=== PATIENT | female | born 1945 | race Two or more races ===

== ENCOUNTER 2017-09-01 14:32 | Emergency (ER) | payer OTHER ==
[~2017-09-01] VITALS: Ht 165.1 cm; Wt 72.6 kg
[2017-09-01] MEDS ORDERED: SODIUM CHLORIDE 0.9% 1,000 ML IV ONE ×2 (15:07)
[2017-09-01 16:00] LABS: Basophils # (auto) 0 uL; Basophils % (auto) 0.5 % (0.0-2.0); Eosinophils # (auto) 0.1 uL; Eosinophils % (auto) 1.8 % (0.0-7.0); Hematocrit 31.3 % (36.0-46.0); Hemoglobin 10.6 g/dL (12.2-16.2); Lymphocytes % (auto) 18.4 % (10.0-50.0); Mean Corpuscular Hemoglobin 30.6 pg (28.0-32.0); Mean Corpuscular Hgb Conc. 33.8 g/dL (32.0-36.0); Mean Corpuscular Volume 90.4 fL (80.0-100.0); Monocytes # (auto) 0.3 uL; Monocytes % (auto) 5.2 % (0.0-12.0); Neutrophils # (auto) 4.2 uL; Neutrophils % (auto) 74.1 % (37.0-80.0); Nucleated Red Blood Cells % 0.1 %; Platelet Count (auto) 135 10^3/uL (140-450); Red Blood Cells 3.46 10^6/uL (4.0-5.20); Red Cell Distribution Width 13.2 % (11.8-14.3); White Blood Cell 5.7 10^3/uL (4.4-10.8)
[2017-09-01 16:16] LABS: Alanine Aminotransferase 23 U/L (13-56); Albumin 3.4 g/dL (3.4-5.0); Alkaline Phosphatase 70 U/L (45-117); Anion Gap 8 (5-15); Aspartate Aminotransferase 18 U/L (15-37); BUN/Creatinine Ratio 26.5; Bilirubin, Total 0.4 mg/dL (0.2-1.0); Blood Urea Nitrogen 49 mg/dL (7-18); Calcium 7.9 mg/dL (8.5-10.1); Carbon Dioxide 27 mmol/L (21-32); Chloride 108 mmol/L (98-107); GFR African American 34 mL/min; GFR Non-African American 28 mL/min; Glucose 158 mg/dL (74-106); Potassium 4.3 mmol/L (3.5-5.1); Sodium 143 mmol/L (136-145); Total Protein 6.6 g/dL (6.4-8.2)
[2017-09-01 16:32] LABS: Urine Bacteria FEW /hpf (None Seen); Urine Blood Negative /uL (Negative); Urine Hyaline Cast FEW /lpf (0 - 2); Urine Specific Gravity 1.009 (1.001-1.035); Urine WBC 1 /hpf (0 - 5)
[2017-09-01 17:05] VITALS: BP 124/58
== END 2017-09-01 18:06 | disposition home or self-care (01) ==
LOC: ER 14:32 → EDBD 14:32 → ER 18:06
DX: E86.0 Dehydration (principal); J06.9 Acute upper respiratory infection, unspecified; E11.9 Type 2 diabetes mellitus without complications; I10 Essential (primary) hypertension
CPT/HCPCS: 36415; 71045; 80053; 81001; 84484; 85025; 93005; 96360; 99285; J7030

== ENCOUNTER 2020-06-11 23:47 | Inpatient (IN) | payer OTHER ==
[~2020-06-11] VITALS: Ht 162.6 cm; Wt 79.5 kg
[2020-06-12 01:05] LABS: Basophils # (auto) 0 10 ^3/uL (0-0.2); Basophils % (auto) 0.4 % (0.0-2.0); Eosinophils # (auto) 0.2 10 ^3/uL (0-0.8); Hematocrit 34.2 % (36.0-46.0); Hemoglobin 11.4 g/dL (12.2-16.2); Lymphocytes # (auto) 0.9 10 ^3/uL (0.4-5.4); Lymphocytes % (auto) 11.7 % (10.0-50.0); Mean Corpuscular Hemoglobin 30.1 pg (28.0-32.0); Mean Corpuscular Hgb Conc. 33.4 g/dL (32.0-36.0); Mean Corpuscular Volume 90.4 fL (80.0-100.0); Monocytes # (auto) 0.4 10 ^3/uL (0-1.3); Monocytes % (auto) 5.4 % (0.0-12.0); Neutrophils # (auto) 6.2 10 ^3/uL (1.6-8.6); Neutrophils % (auto) 80.5 % (37.0-80.0); Platelet Count (auto) 205 10^3/uL (140-450); Red Blood Cells 3.78 10^6/uL (4.0-5.20); Red Cell Distribution Width 12.9 % (11.8-14.3); White Blood Cell 7.7 10^3/uL (4.4-10.8)
[2020-06-12 01:21] LABS: Calcium 8.9 mg/dL (8.5-10.1)
[2020-06-12 01:24] LABS: Bilirubin, Total 0.3 mg/dL (0.2-1.0); Total Protein 7.4 g/dL (6.4-8.2)
[2020-06-12] MEDS ORDERED: ONDANSETRON HCL 4 MG/2 ML VIAL IV ONE (02:15)
[2020-06-12] MEDS ORDERED: MORPHINE SULFATE 4 MG/ML SYR/VIAL IV ONE (02:15)
[2020-06-12 02:27] LABS: Urine Bacteria FEW /hpf (None Seen); Urine Blood Negative /uL (Negative); Urine Hyaline Cast MOD /lpf (0 - 2); Urine Mucus FEW (None Seen); Urine Specific Gravity 1.018 (1.001-1.035); Urine WBC 6 /hpf (0 - 5)
[2020-06-12] MEDS ORDERED: LIDOCAINE 2%HCL (LOCAL ANESTH.) INJ 20ML MDV ID ONE (02:45)
[2020-06-12] MEDS ORDERED: OMNIPAQUE ORAL SOLN 500ml 12mg/ml PO ONE (03:52)
[2020-06-12] MEDS ORDERED: PIPERACILLIN-TAZOB 3.375GM 100 ML IV ONE (04:45)
[2020-06-12] MEDS ORDERED: VANCOMYCIN 1GM/250ML 250 ML IV ONE (04:45)
[2020-06-12] MEDS ORDERED: ACETAMINOPHEN 325 MG TAB PO PRN (07:15)
[2020-06-12] MEDS ORDERED: HYDROcodone-ACET 5/325MG TAB PO PRN (07:15)
[2020-06-12] MEDS ORDERED: DEXTROSE (50%) 50ML SYRG IV PRN (07:15)
[2020-06-12] MEDS: cefTRIAXone 1GM/50ML D5W 50 ML IV SCH (09:15)
--- NOTE | 2020-06-12 09:45 | NUR ---
Med Surg admit from ER LISETH KNUTSON admitted to Telemetry unit after SBAR received. Patient oriented to FREDY LIRA RN primary RN, unit, room, bed, and unit policies regarding patient care and visiting hours. Patient weighed by bedscale and encouraged to call if they need something. All questions and concerns addressed, patient verbalized understanding.
[2020-06-12 10:00] VITALS: BP 124/63
[2020-06-12] MEDS: hydrALAZINE HCL 25 MG TAB PO SCH ×2 (10:35→21:41)
[2020-06-12] MEDS: CLOPIDOGREL BISULFATE 75 MG TAB PO SCH (10:36)
[2020-06-12] MEDS: PANTOPRAZOLE 40 MG TAB PO SCH (10:36)
[2020-06-12] MEDS: FUROSEMIDE 40 MG TAB PO SCH (10:36)
[2020-06-12] MEDS: ACCU-CHEK COMFORT CURVE STRIP VI SCH ×3 (11:30→21:41)
[2020-06-12] MEDS ORDERED: PRED1SUS4 OP (12:00)
[2020-06-12] MEDS ORDERED: ALP15OS EACHEYE (12:00)
[2020-06-12] MEDS ORDERED: METO5TAB2 PO (12:00)
[2020-06-12] MEDS ORDERED: LEVO112T4 PO (12:00)
[2020-06-12] MEDS ORDERED: SIMV80TA73 PO (12:00)
[2020-06-12] MEDS ORDERED: HYDR50TA15 PO (12:00)
[2020-06-12] MEDS ORDERED: MULT-777 OR (12:00)
[2020-06-12] MEDS ORDERED: GABA-339 PO (12:00)
[2020-06-12] MEDS ORDERED: FURO40TA4 PO (12:00)
[2020-06-12] MEDS ORDERED: OMEP20TA PO (12:00)
[2020-06-12] MEDS ORDERED: LEVO750T8 PO (12:00)
[2020-06-12] MEDS ORDERED: CLOP75TA41 PO (12:00)
[2020-06-12] MEDS ORDERED: LATA0.0019 EACHEYE (12:00)
[2020-06-12] MEDS: InsuLIN REG 1unit/0.01ml Soln (100units/ml) SC SCH ×3 (12:45→22:55)
[2020-06-12 13:00] VITALS: BP 122/63
[2020-06-12] MEDS: CLINDAMYCIN 600MG IV 50 ML IV SCH ×2 (14:43→21:40)
[2020-06-12 17:00] VITALS: BP 122/72
[2020-06-12] MEDS ORDERED: LEVO500T21 PO (17:29)
[2020-06-12] MEDS ORDERED: CLIN300C8 PO (17:29)
[2020-06-12 21:37] VITALS: BP 144/62
[2020-06-12] MEDS: ATORVASTATIN 20 MG TAB PO SCH (21:41)
[2020-06-13] VITALS (7 sets, daily range): BP systolic 123–170; BP diastolic 69–83
[2020-06-13] MEDS: CLINDAMYCIN 600MG IV 50 ML IV SCH ×2 (05:49→15:11)
[2020-06-13] MEDS: LEVOTHYROXINE SODIUM 100 MCG TAB PO SCH (06:48)
[2020-06-13] MEDS: ACCU-CHEK COMFORT CURVE STRIP VI SCH ×4 (06:48→21:04)
[2020-06-13] MEDS: InsuLIN REG 1unit/0.01ml Soln (100units/ml) SC SCH ×4 (06:51→21:26)
[2020-06-13 07:57] LABS: Basophils # (auto) 0 10 ^3/uL (0-0.2); Basophils % (auto) 0.4 % (0.0-2.0); Eosinophils # (auto) 0.1 10 ^3/uL (0-0.8); Eosinophils % (auto) 2.2 % (0.0-7.0); Hematocrit 34.6 % (36.0-46.0); Hemoglobin 11.4 g/dL (12.2-16.2); Lymphocytes # (auto) 0.8 10 ^3/uL (0.4-5.4); Lymphocytes % (auto) 11.5 % (10.0-50.0); Mean Corpuscular Hemoglobin 29.6 pg (28.0-32.0); Mean Corpuscular Volume 89.5 fL (80.0-100.0); Monocytes # (auto) 0.4 10 ^3/uL (0-1.3); Monocytes % (auto) 6.5 % (0.0-12.0); Neutrophils # (auto) 5.2 10 ^3/uL (1.6-8.6); Neutrophils % (auto) 79.4 % (37.0-80.0); Platelet Count (auto) 222 10^3/uL (140-450); Red Blood Cells 3.86 10^6/uL (4.0-5.20); Red Cell Distribution Width 12.8 % (11.8-14.3); White Blood Cell 6.5 10^3/uL (4.4-10.8)
--- NOTE | 2020-06-13 08:10 | NUR ---
Informed Dr Walter patient drank approximately 200 mls of broth and tea. Per MD, patient should still be ok for procedure, but will take place at 13:00.
[2020-06-13 08:14] LABS: Calcium 8.9 mg/dL (8.5-10.1); Potassium 3.7 mmol/L (3.5-5.1)
[2020-06-13 08:16] LABS: BUN/Creatinine Ratio 18.9
[2020-06-13 08:36] LABS: INR 1.06 (0.9-1.15); Partial Thromboplastin Time 41.6 sec (23.0-31.2)
[2020-06-13] MEDS: cefTRIAXone 1GM/50ML D5W 50 ML IV SCH (09:46)
[2020-06-13] MEDS: FUROSEMIDE 40 MG TAB PO SCH (10:00)
[2020-06-13] MEDS: CLOPIDOGREL BISULFATE 75 MG TAB PO SCH (10:00)
[2020-06-13] MEDS: PANTOPRAZOLE 40 MG TAB PO SCH (10:00)
--- NOTE | 2020-06-13 10:05 | NUR ---
Received orders from Dr Walter to placed cardio consult with Dr Gordon. Order carried out
--- NOTE | 2020-06-13 10:10 | NUR ---
Dr Gordon bedside with patient. Order received from for Echo. Order placed.
--- NOTE | 2020-06-13 10:33 | NUR ---
Assessment Patient is a 74-year-old female who is alert and oriented. Prior to admission patient lived home with family and functioned independently. Patient informed me she can care for her own ADLs. Patient has a walker with seat for home use. Per patient she will return home to her prior living arrangements post discharge and family will transport her home. Advised patient there is a social service consult for home health safety evaluation. Informed patient clinical information will be faxed to [facility] and [facility]. Informed patient she has the right to participate in all discharge planning. Patient verbalized understanding and agreed to discharge plan. Faxed to [facility] and [facility]. Per Nataliia with [facility] patient has been accepted and service to start within 24-48hrs upon d/c day. Addendum: 06/13/20 at 1035 by AMANDA FONG Amended: Links added.
[2020-06-13] MEDS: hydrALAZINE HCL 25 MG TAB PO SCH ×2 (10:47→21:04)
--- NOTE | 2020-06-13 11:55 | NUR ---
Per Dr Gordon, patient cleared for procedure. Per Dr Gordon, patient acceptable low risk for surgery, ok to proceed.
[2020-06-13] MEDS ORDERED: PROPOFOL 10 MG/ML 20 ML IV ONE (12:27)
[2020-06-13] MEDS ORDERED: KETAMINE HCL ONE (12:27)
[2020-06-13] MEDS ORDERED: SODIUM CHLORIDE LOCK 10 ML ONE (12:27)
[2020-06-13] MEDS ORDERED: MIDAZOLAM HCL 1MG/1ML-2 ML VIAL ONE (12:27)
[2020-06-13] MEDS ORDERED: fentaNYL CITRATE 100 MCG/2 ML VL ONE (12:27)
[2020-06-13] MEDS ORDERED: ONDANSETRON HCL 4 MG/2 ML VIAL ONE (12:27)
--- NOTE | 2020-06-13 12:45 | NUR ---
Patient brought down to preop for procedure.
[2020-06-13] MEDS ORDERED: VANCOMYCIN HCL 1000 MG VL ONE ×2 (12:54→13:15)
[2020-06-13] MEDS ORDERED: ceFAZolin 1GM/50ML 100 ML IV ONE (12:54)
[2020-06-13] MEDS ORDERED: LIDOCAINE W/ EPINEPHRINE 1 % INJ 30ML ONE (12:55)
[2020-06-13] MEDS ORDERED: ceFAZolin 1GM/50ML 50 ML IV ONE (12:55)
[2020-06-13] MEDS ORDERED: ACE325T PO (13:57)
[2020-06-13] MEDS ORDERED: ONDANSETRON HCL 4 MG/2 ML VIAL IV PRN (14:00)
[2020-06-13] MEDS ORDERED: HYDROmorphone HCL 2 MG/ML VL IV PRN (14:00)
[2020-06-13] MEDS ORDERED: ACCU-CHEK COMFORT CURVE STRIP VI ONE (14:00)
--- NOTE | 2020-06-13 14:20 | NUR ---
Paged Dr Walter to find out if patient is ok to D/C today
--- NOTE | 2020-06-13 14:23 | NUR ---
Dr Cavazos on unit
--- NOTE | 2020-06-13 14:30 | NUR ---
Patient back in room from procedure. Patient VS: 163/101, 80, 20, 9714, 95%. Patient complaining of 10/10 pain to right knee. Patient dressing is clean/dry/intact with wound vac attached. Paged Dr Walter to inform of patients pain and to request additional pain medication.
[2020-06-13] MEDS: SODIUM CHLOR 0.9% PF (SALINE LOCK) 10ML VIAL/SYR IV SCH ×2 (15:11→21:04)
[2020-06-13] MEDS: LACTATED RINGER'S 1,000 ML IV SCH ×2 (15:12→21:05)
[2020-06-13] MEDS ORDERED: VANCOMYCIN PER PHARMACY 0 MG IV SCH (15:15)
--- NOTE | 2020-06-13 15:31 | NUR ---
Order received from Dr Cavazos to kenroy/kristie Gutierrez. Order carried out.
--- NOTE | 2020-06-13 15:50 | NUR ---
Informed Kayleen, Dr Walter's MOTORS ASSEMBLER, of patients continued pain of 10/10. She will place order for additional pain medication. Kayleen also said Dr Walter would prefer to have patient stay overnight and be reevaluated tomorrow. D/C held
[2020-06-13] MEDS ORDERED: VANCOMYCIN 1GM/250ML 250 ML IV ONE (16:00)
[2020-06-13] MEDS: HYDROmorphone HCL 2 MG/ML VL IV PRN ×2 (16:24→21:05)
[2020-06-13] MEDS ORDERED: HYDR-4833 PO ×2 (19:28→19:30)
[2020-06-13] MEDS ORDERED: LINE1TAB6 PO (19:28)
[2020-06-13] MEDS: ATORVASTATIN 20 MG TAB PO SCH (21:04)
[2020-06-13] MEDS: ONDANSETRON HCL 4 MG/2 ML VIAL IV PRN (21:05)
[2020-06-14 05:00] VITALS: BP 149/86
[2020-06-14 05:53] LABS: Calcium 9.3 mg/dL (8.5-10.1); Potassium 4.2 mmol/L (3.5-5.1)
[2020-06-14] MEDS: LEVOTHYROXINE SODIUM 100 MCG TAB PO SCH (06:13)
[2020-06-14] MEDS: SODIUM CHLOR 0.9% PF (SALINE LOCK) 10ML VIAL/SYR IV SCH ×2 (06:13→18:55)
[2020-06-14] MEDS: ACCU-CHEK COMFORT CURVE STRIP VI SCH ×3 (06:14→17:00)
[2020-06-14] MEDS: InsuLIN REG 1unit/0.01ml Soln (100units/ml) SC SCH ×3 (06:15→17:00)
--- NOTE | 2020-06-14 07:30 | NUR ---
Opening Shift Note Assumed care of patient, awake and alert. Respirations even and unlabored. No S/S of distress/SOB or pain. Bed is low, locked with 2x side rails up. Call light is within reach. Instructed on POC and to call for assist PRN, will continue to monitor for changes Q1hr and PRN.
[2020-06-14 09:00] VITALS: BP 166/84
[2020-06-14] MEDS: ONDANSETRON HCL 4 MG/2 ML VIAL IV PRN (09:36)
[2020-06-14] MEDS: PANTOPRAZOLE 40 MG TAB PO SCH (09:37)
[2020-06-14] MEDS: hydrALAZINE HCL 25 MG TAB PO SCH (09:37)
[2020-06-14] MEDS: CLOPIDOGREL BISULFATE 75 MG TAB PO SCH (09:37)
[2020-06-14] MEDS: HYDROmorphone HCL 2 MG/ML VL IV PRN (09:37)
[2020-06-14] MEDS: FUROSEMIDE 40 MG TAB PO SCH ×2 (09:38→10:00)
[2020-06-14] MEDS: LACTATED RINGER'S 1,000 ML IV SCH (09:45)
--- NOTE | 2020-06-14 10:00 | NUR ---
LVM for T. Arie LVM for T. Roma. Patient reports not being able to urinate. Performed bladder scan, patient has >800 ml of retained urine in bladder. Waiting for call back.
--- NOTE | 2020-06-14 10:07 | NUR ---
Spoke to Della Brandon MD inputted new orders. Will carry out.
--- NOTE | 2020-06-14 10:55 | NUR ---
Schmid catheter insertion Patient assessed and determined to be in need of schmid catheter. Order obtained from MD. Patient educated on catheter and reason for insertion. All questions answered. Schmid catheter 16 gauge Yi inserted with clean sterile technique. Patient tolerated well. Noted over 900 ml of light urine noted in urine collection bag. Schmid is hung below bladder, is free of kinks and draining freely to gravity.
[2020-06-14] MEDS ORDERED: VANCOMYCIN 1GM/250ML 250 ML IV SCH (13:00)
--- NOTE | 2020-06-14 13:00 | NUR ---
Urine culture Collected urine and sent to lab for urine culture per orders.
--- NOTE | 2020-06-14 13:55 | NUR ---
Paging/LVM for Eileen Walter For discharge clearance. Left message for MD with molded parts inspector from his office. Waiting for a call back.
--- NOTE | 2020-06-14 14:30 | NUR ---
Cleared from Urology Patient cleared for discharge from Urology standpoint. Patient may be discharged with urinary leg bag and can follow up with Urology for possibly Cystoscopy as outpatient.
--- NOTE | 2020-06-14 15:02 | NUR ---
Received call back from Eileen Walter Patient is cleared for discharge. Patient to follow up next week.
--- NOTE | 2020-06-14 15:38 | NUR ---
MIHAELA Brandon To inform him that patient has been cleared for discharge by Dr. Walter and PT eval was completed. PT recommending [facility].H.
--- NOTE | 2020-06-14 15:39 | NUR ---
Received call back Spoke to Della Brandon MD to modify current discharge orders. Patient to be discharged today.
[2020-06-14 17:00] VITALS: BP 149/73
[2020-06-14 17:45] VITALS: BP 149/73
--- NOTE | 2020-06-14 19:10 | NUR ---
Endorsed discharge Endorsed discharge to Lubna DOWNS RN. Discharge packet and Zyvox medication given to NOC RN. Made NOC RN aware that Urology wants patient discharged with urinary leg bag. Education provided in discharge instructions.
--- NOTE | 2020-06-14 19:45 | NUR ---
DISCHARGE PATIENTS IV WAS REMOVED WITH CATHETER INTACT.DAUGHTER WAS CALLED FOR FREEZER TUNNEL OPERATOR. UPON ARRIVAL OF PATIENTS DAUGHTER (FRANCK) DISCHARGE INSTRUCTIONS WERE EXPLAINED WELL HERRERA CATHETER CARE AND INSTRUCTIONS TO MAKE APPOINTMENT FOR FOLLOW UP CARE. CATHETER WAS DRAINING CLEAR YELLOW URINE INTO THE LEG BAG.
== END 2020-06-14 21:00 | disposition home health service (06) | DRG 580 ==
LOC: ER 23:49 → OVERFLOW 23:50 → WEST WING 06-12 09:44
PROVIDERS: ADMIT Nurse Practitioner; ATTEND Internal Medicine
PROC: 0KDS0ZZ Extraction of Right Lower Leg Muscle, Open Approach (ICD-10-PCS; principal; 2020-06-13 12:58)
DX: L02.415 Cutaneous abscess of right lower limb (principal); N39.0 Urinary tract infection, site not specified; E44.0 Moderate protein-calorie malnutrition; I13.0 Hypertensive heart and chronic kidney disease with heart failure and stage 1 through stage 4 chronic kidney disease, or unspecified chronic kidney disease; L03.115 Cellulitis of right lower limb; N18.30 Chronic kidney disease, stage 3 unspecified; E11.22 Type 2 diabetes mellitus with diabetic chronic kidney disease; E66.9 Obesity, unspecified; E03.9 Hypothyroidism, unspecified; B95.61 Methicillin susceptible Staphylococcus aureus infection as the cause of diseases classified elsewhere; H40.9 Unspecified glaucoma; E78.5 Hyperlipidemia, unspecified; K21.9 Gastro-esophageal reflux disease without esophagitis; E11.42 Type 2 diabetes mellitus with diabetic polyneuropathy; Z20.828 Contact with and (suspected) exposure to other viral communicable diseases; I50.9 Heart failure, unspecified; M17.11 Unilateral primary osteoarthritis, right knee; Z80.0 Family history of malignant neoplasm of digestive organs; Z82.49 Family history of ischemic heart disease and other diseases of the circulatory system; Z68.30 Body mass index [BMI] 30.0-30.9, adult; Z83.3 Family history of diabetes mellitus; Z79.02 Long term (current) use of antithrombotics/antiplatelets
CPT/HCPCS: 36415; 71045; 73700; 76881; 80048; 80053; 80202; 81001; 82962; 83036; 83605; 85025; 85610; 85730; 86850; 86900; 86901; 87040; 87070; 87075; 87077; 87086; 87186; 87205; 87426; 93005; 93306; 96365; 96366; 96367; 96375; 97163; G0378; J0690; J0696; J1815; J2250; J2405; J2543; J2704; J3490